=== PATIENT | male | born 1965 | race Caucasian/White ===

== ENCOUNTER → 2017-04-11 | Outpatient (CLI) | payer OTHER | LOC: FIMAGING 07:32 | PROVIDERS: ATTEND Physician Assistant | DX: R93.8 Abnormal findings on diagnostic imaging of other specified body structures (principal); M50.223 Other cervical disc displacement at C6-C7 level; M25.78 Osteophyte, vertebrae; M54.12 Radiculopathy, cervical region; R29.898 Other symptoms and signs involving the musculoskeletal system ==

== ENCOUNTER → 2018-01-23 | Outpatient (CLI) | payer OTHER ==
[~2018-01-23] MED LIST: GADOBUTROL 10 ML VIAL IVP ONE
== END ==
LOC: FIMAGING 06:46
PROVIDERS: ATTEND Otolaryngology
DX: J39.2 Other diseases of pharynx (principal); M25.78 Osteophyte, vertebrae; G95.20 Unspecified cord compression; M48.02 Spinal stenosis, cervical region; M99.71 Connective tissue and disc stenosis of intervertebral foramina of cervical region
CPT/HCPCS: A9585

== ENCOUNTER → 2018-10-06 | Outpatient (CLI) | payer OTHER | LOC: FIMAGING 18:07 | PROVIDERS: ATTEND Nurse Practitioner | DX: M50.31 Other cervical disc degeneration, high cervical region (principal); M50.222 Other cervical disc displacement at C5-C6 level; M47.12 Other spondylosis with myelopathy, cervical region; M48.02 Spinal stenosis, cervical region ==

== ENCOUNTER 2018-12-02 05:27 | Observation (INO) | payer OTHER ==
[2018-12-02] MEDS ORDERED: ceFAZolin 2 GM/DEXTROSE 100 ML IV ONE (05:59)
[2018-12-02] MEDS ORDERED: ACETAMINOPHEN 500 MG TAB PO ONE (05:59)
[2018-12-02] MEDS ORDERED: LR 1,000 ML IV ONE (06:00)
[2018-12-02] MEDS ORDERED: THROMBIN (BOVINE) 20,000 UNIT VIAL TP ONE (06:38)
[2018-12-02] MEDS ORDERED: SURGIFLO MATRIX KIT WITH THROMBIN 8 ML TP ONE (06:38)
[2018-12-02] MEDS ORDERED: CHLORHEXIDINE GLUC HIBICLENS 118 ML BTL TP ONE (06:39)
[2018-12-02] MEDS ORDERED: BACITRACIN 50,000 UNITS/10 ML SYR IRR ONE (06:39)
--- NOTE | 2018-12-02 06:39 | PDHPUP ---
History & Physical Update H&P update statement: This history and physical update is based on an assessment of the patient which was completed after admission or registration (within 24 hours), but prior to the surgery/procedure. H&P update: H&P reviewed & patient examined, no change in patient's condition since H&P completed (Consents signed and site marked. All questions answered.)
--- NOTE | 2018-12-02 07:00 | PDANEPAE ---
ANE Past Medical History - Cardiovascular History Hx Hypertension: Yes Hx Arrhythmias: No Hx Chest Pain: No Hx Coronary Artery / Peripheral Vascular Disease: No Hx CHF / Valvular Disease: No Hx Palpitations: No - Pulmonary History Hx COPD: No Hx Asthma/Reactive Airway Disease: Yes Hx Recent Upper Respiratory Infection: No Hx Oxygen in Use at Home: No Hx Sleep Apnea: No Sleep Apnea Screening Result - Last Documented: Positive Pulmonary History Comment: severe allergic asthma - Neurologic History Hx Cerebrovascular Accident: No Hx Seizures: Yes Hx Dementia: No Neurologic History Comment: petti mal seizures as teenager nothing since - Endocrine History Hx Diabetes: No - Renal History Hx Renal Disorders: No - Liver History Hx Hepatic Disorders: No - Neurological & Psychiatric Hx Hx Neurological and Psychiatric Disorders: Yes Neurological / Psychiatric History Comment: weakness to left arm. migraines. nortryptiline triggers vertigo - Cancer History Hx Cancer: No - Congenital Disorder History Hx Congenital Disorders: No - GI History Hx Gastrointestinal Disorders: Yes Gastrointestinal History Comment: acid reflux - Other Health History Other Health History: allergic rhinitis - Chronic Pain History Chronic Pain: No - Surgical History Prior Surgeries: toncilectomy at 2 yrs old ANE Review of Systems Review of Systems: - Exercise capacity METS (RN): 4 METS ANE Patient History - Allergies Allergies/Adverse Reactions: ibuprofen Allergy (Severe, Verified 12/20/14 14:40) Vomiting celecoxib [From Celebrex] Allergy (Verified 11/14/18 15:52) Vomiting gabapentin Allergy (Verified 11/14/18 15:52) Vomiting NSAIDS (Non-Steroidal Anti-Inflamma Allergy (Verified 11/14/18 15:52) Vomiting prednisone Allergy (Verified 12/02/18 06:13) pregabalin [From Lyrica] Allergy (Verified 11/14/18 15:52) Vomiting - Home Medications Home Medications: Atorvastatin Calcium [Lipitor 10 mg (*)] 10 mg PO DAILY 11/14/18 [Last Taken ] C/E/Zn/Cu/OM3/DHA/EPA/LUT/ZEAX [Preservision Areds 2 Softgel] 1 each PO BID 10/04 [Last Taken 11/28/18] Caffeine 200 mg PO DAILY@06 PRN 11/14/18 [Last Taken 11/25/18] Chlorpheniramine Maleate 32 mg PO HS 11/14/18 [Last Taken 11/30/18 22:00] Docusate Sodium [Dulcolax Stool Softener] 100 mg PO TIDMEAL 11/14/18 [Last Taken 11/25/18] Pseudoephedrine HCl 120 mg PO HS 11/14/18 [Last Taken 11/30/18 22:00] Ranitidine HCl [Zantac] 150 - 450 mg PO DAILY@1800 11/14/18 [Last Taken 19:00] Valacyclovir HCl [Valtrex] 1,000 mg PO DAILY PRN 11/14/18 [Last Taken Unknown] oxyCODONE/APAP 5/325 [Percocet 5/325 (*)] 1 - 2 tab PO Q4H PRN 11/14/18 [Last Taken 11/25/18] - NPO status NPO Since - Liquids (Date): 12/01/18 NPO Since - Liquids (Time): 23:00 NPO Since - Solids (Date): 12/01/18 NPO Since - Solids (Time): 19:00 - Smoking Hx Smoking Status: Never smoked - Family Anes Hx Family Hx Anesthesia Complications: mother very sick to stomach and vomiting ANE Labs/Vital Signs - Vital Signs Blood Pressure: 132/83 Heart Rate: 99 Respiratory Rate: 25 O2 Sat (%): 95 Height: 180.34 cm Weight: 98.883 kg ANE Physical Exam - Airway Neck exam: FROM Mallampati Score: Class 2 Mouth exam: normal dental/mouth exam - Pulmonary Pulmonary: no respiratory distress - Cardiovascular Cardiovascular: regular rate and rhythym - ASA Status ASA Status: II ANE Anesthesia Plan Anesthesia Plan: general endotracheal anesthesia
[2018-12-02] MEDS ORDERED: MIDAZOLAM 2 MG/2 ML VIAL ONE (07:11)
[2018-12-02] MEDS ORDERED: PROPOFOL/EMULSION 500 MG/50 ML BOTTLE IV ONE ×4 (07:14→08:59)
[2018-12-02] MEDS ORDERED: ONDANSETRON 4 MG/2 ML VIAL ONE ×2 (07:19)
[2018-12-02] MEDS ORDERED: LIDOCAINE 2% 100 MG/5 ML SYR ONE (07:19)
[2018-12-02] MEDS ORDERED: PHENYLEPHRINE 10 MG/ML SDV ONE (07:20)
[2018-12-02] MEDS ORDERED: MIDAZOLAM 2 MG/2 ML VIAL IVP ONE (08:33)
[2018-12-02] MEDS ORDERED: ALBUTEROL 3 ML DEYVIAL IH PRN (08:47)
[2018-12-02] MEDS ORDERED: fentaNYL 100 MCG/2 ML INJ IVP PRN (08:47)
[2018-12-02] MEDS ORDERED: NALOXONE HCL 0.4 MG/ML INJ IVP PRN ×2 (08:47)
[2018-12-02] MEDS ORDERED: METOCLOPRAMIDE 10 MG/2 ML VIAL IVP PRN (08:47)
[2018-12-02] MEDS ORDERED: MEPERIDINE 25 MG/0.5 ML AMP IVP PRN (08:47)
[2018-12-02] MEDS ORDERED: ONDANSETRON 4 MG/2 ML VIAL IVP PRN ×2 (08:47→10:52)
[2018-12-02] MEDS ORDERED: DEXAMETHASONE 4 MG/ML VIAL ONE ×2 (09:11)
[2018-12-02] MEDS ORDERED: GLYCOPYRROLATE 0.2 MG/1 ML VIAL ONE ×2 (09:22)
[2018-12-02] MEDS ORDERED: NEOSTIGMINE METHYLSULFATE 5 MG/5 ML SYR ONE (09:22)
[2018-12-02] MEDS ORDERED: *INTRAOP 1000MG*TRANEX ACID/NS 100 ML IV ONE (09:30)
[2018-12-02] MEDS ORDERED: ONDANSETRON DISINTEGRATING 4 MG TAB PO PRN (10:52)
[2018-12-02] MEDS ORDERED: BISACODYL 10 MG SUPP PR PRN (10:52)
[2018-12-02] MEDS ORDERED: LACTULOSE 20 GM/30 ML UDCUP PO PRN (10:52)
[2018-12-02] MEDS ORDERED: MAGNESIUM HYDROXIDE 30 ML UDCUP PO PRN (10:52)
[2018-12-02] MEDS ORDERED: diphenhydrAMINE 25 MG CAP PO PRN (10:52)
[2018-12-02] MEDS ORDERED: POLYETHYLENE GLYCOL 3350 17 GM PKT PO PRN (10:52)
[2018-12-02] MEDS ORDERED: NS 1,000 ML IV SCH (11:00)
--- NOTE | 2018-12-02 11:04 | POSTOPPROG ---
Post Op Note Date of Operation: 12/02/18 Surgeon: Andrea Harrington Tanning Wheel Filler: Aleksandar Landrum NP Anesthesiologist: Guerrero Anesthesia: GET(General Endotracheal) Pre-op Diagnosis: Cervical stenosis Post-op Diagnosis: Cervical fusion, cervical stenosis Procedure: ACDF C5-6, C6-7 Inf/Abcess present in the surg proc area at time of surgery?: No Depth: Deep Incisional (Fascial) EBL: 50-100 Total fluids administered: see anesthesia Complications: none Bowel Protocol: N/A Clean Closure Performed: N/A Drains: Chaitanya Moran Date of Surgery: 12/02/18 Post Op Day: 0 Assessment/Plan: Assessment: 53 yr old M s/p ACDF C5-6, C6-7 Plan: -Admit med surg -Post op xrays later today -Collar on at all time except for shower and eating -JOHNATHAN to bulb suction -PT/OT/ST -Please call with questions/concerns Subjective: waking up in pacu Objective: waking up in pacu No facial droop MAEx4 Dressing CDI JOHNATHAN patent Collar in place Appropriate Neuro Check Frequency Ordered: Yes
--- NOTE | 2018-12-02 11:12 | GOP ---
[f rep st] OPERATIVE REPORT DATE OF OPERATION: 12/02/2018 SURGEON: Andrea Harrington MD ETL TESTER: Hui Moy NP. ANESTHESIA: General. PREOPERATIVE DIAGNOSIS: 1. C5 through C7 cervical spondylosis with left-sided herniated nucleus pulposus and lateral recess and foraminal stenosis. 2. Left upper extremity radiculopathy and weakness. 3. Treatment refractory to nonoperative intervention. POSTOPERATIVE DIAGNOSIS: 1. C5 through C7 cervical spondylosis with left-sided herniated nucleus pulposus and lateral recess and foraminal stenosis. 2. Left upper extremity radiculopathy and weakness. 3. Treatment refractory to nonoperative intervention. PROCEDURE PERFORMED: 1. Anterior arthrodesis with approach to C5, C6, and C7. 2. C5-C6 diskectomy with bilateral foraminotomies, osteophytectomies, and interbody fusion using a 7 x 14 mm titanium coated PEEK cage filled with morselized autograft and allograft. 3. C6-C7 diskectomy with bilateral foraminotomies osteophytectomies, and interbody fusion using a 7 x 14 mm titanium coated PEEK cage filled with morselized autograft and allograft. 4. Anterior cervical fusion C5, C6, and C7 with a 35 mm Medtronic Zevo plate. 5. Use of intraoperative fluoroscopy, less than 1 hour physician time. 6. Use of neuromonitoring. 7. Use of the operating microscope. FINDINGS: Left-sided foraminal stenosis was likely secondary to an osteophyte complex and not a disk herniation as presumed on the MRI. ESTIMATED BLOOD LOSS: 50 mL. COMPLICATIONS: None. INDICATIONS: The patient is a very pleasant, 53-year-old who presented to my office with left upper extremity radiculopathy and arm weakness. Imaging demonstrated a left-sided C5-C6 and C6-C7 disk herniations with lateral recess and foraminal stenosis. After discussion of risks, benefits, and alternatives, and given the fact that he had weakness, we decided to proceed forth with surgery as described above. DESCRIPTION OF PROCEDURE: The patient was brought to the operating theater and underwent general anesthesia without complications. He had Venodynes, GRECIA hose , and the appropriate lines placed by Anesthesia. His head was maintained supine on the operating table in slight extension. Using lateral fluoroscopy and a spinal needle, we picked our entry point to the C5 through C7 levels. The visualization was somewhat challenging due to the patient's body habitus and shoulders. We then marked this is a transverse incision on the right side of the neck. This area was then prepped and draped in the usual sterile surgical fashion. A time-out was completed per protocol. The patient received antibiotics within 1 hour of incision. The incision was taken down with the scalpel blade. Using monopolar, the incision was taken down through subcutaneous tissues to the level of the platysma. The platysma was over-mined in the cranial and caudal direction. A Weitlaner was placed to maintain our exposure. We traveled in a plane medial to the carotid sheath and lateral to the esophagus and trachea until we reached the prevertebral fascia. We placed a bayonetted needle into the disc space of C5-C6 and confirmed our level using lateral fluoroscopy. We elevated the longus coli from the anterior vertebral bodies of C5, C6, and C7. Deep retractors were placed to maintain exposure. We confirmed our level using lateral fluoroscopy. The microscope was brought into field to assist with microscopic dissection and maintain illumination and magnification. Using a combination of bur tip on the drill bit, Kerrison punches, and curettes, we completed a C5-C6 diskectomy with bilateral foraminotomies. We prepared the cartilaginous endplates and measured the interbody space. We then placed a 7 x 14 x 11 mm titanium coated PEEK cage filled with morselized autograft and allograft into the C5-C6 disk space. We removed the [place] pin from C5, placed it into C7 and placed C6-C7 into mild distraction. We completed a C6-C7 diskectomy with bilateral foraminotomies and osteophytectomies. There was not a large fresh disk herniation as noted at this level, but he did have a large disk osteophyte complex, which were removed carefully using Kerrison punches. We prepared the cartilaginous endplates and measured interbody space. We placed a 7 x 14 x 11 mm titanium coated PEEK cage filled with morselized autograft and allograft into the C6-7 disk space. We removed the [place] pins, drilled down the anterior osteophytes and secured a 35 mm Medtronic Zevo plate onto the vertebral bodies of C5, C6, and C7. AP and lateral x-rays demonstrated good placement of the hardware. The wound was irrigated copiously with bacitracin irrigation. We left a drain in subfascial space and closed the wound in multiple layers using Vicryl sutures for the deep layers and Dermabond for the skin. Patient's wounds were dressed sterilely. He was awakened, extubated, and taken to the recovery room in stable condition. There were no complications and no noted changes on neuromonitoring throughout the procedure. /[id number]/MODL MTDD
[2018-12-02] MEDS ORDERED: HYDROCODONE/APAP 5/325 TAB ONE (12:51)
[2018-12-02] MEDS: HYDROCODONE/APAP 5/325 TAB PO PRN ×3 (12:51→21:53)
[2018-12-02] MEDS: METHOCARBAMOL 750 MG TAB PO PRN ×2 (13:51→19:56)
[2018-12-02] MEDS ORDERED: ACETAMINOPHEN 500 MG TAB PO SCH (14:00)
--- NOTE | 2018-12-02 14:36 | POSTANESTH ---
Post Anesthetic Evaluation Cardiovascular Status: Similar to Pre-Op Cond Respiratory Status: Similar to Pre-op Cond. Level of Consciousness/Mental Status: Alert and Oriented Pain Control: Adequate, Prn Tx Ordered Nausea/Vomiting Control: Adequate, Prn Tx Ordered Complications Possibly Related to Anesthesia: None Noted
[2018-12-02] MEDS: ACETAMINOPHEN 500 MG TAB PO SCH ×2 (16:25→21:54)
[2018-12-02] MEDS: ceFAZolin 2 GM/DEXTROSE 100 ML IV SCH (18:35)
[2018-12-02] MEDS ORDERED: METOPROLOL TARTRATE 5 MG/5 ML INJ IVP ONE (19:00)
[2018-12-02] MEDS: LISINOPRIL 10 MG TAB PO SCH (19:42)
[2018-12-02] MEDS ORDERED: PSEUDOEPHEDRINE HCL 30 MG TAB PO PRN (21:00)
[2018-12-02] MEDS: SENNOSIDES/DOCUSATE SODIUM TAB PO SCH (21:54)
[2018-12-02] MEDS: FAMOTIDINE 20 MG TAB PO SCH (21:54)
[2018-12-03] MEDS: ceFAZolin 2 GM/DEXTROSE 100 ML IV SCH (01:26)
[2018-12-03] MEDS: METHOCARBAMOL 750 MG TAB PO PRN ×2 (02:16→11:25)
[2018-12-03] MEDS: ACETAMINOPHEN 500 MG TAB PO SCH (05:03)
[2018-12-03 05:11] LABS: PLATELET COUNT 255 10^3/uL (150-400)
[2018-12-03] MEDS ORDERED: oxyCODONE IR 5 MG TAB PO PRN (06:57)
--- NOTE | 2018-12-03 06:58 | NEUSURGPN ---
Date of Surgery: 12/02/18 Post Op Day: 1 Assessment/Plan: Assessment: 53 yr old M that is s/p ACDF C5-6 and C6-7 POD #1 Plan: -s/p ACDF C5-C7: pt states some expected posterior neck pain. Swallowing fine -pt states that his LUE symptoms are gone -continue with med/surg -post op xrays pending -PT/OT/ST pending -collar on at all time except for shower and eating -JOHNATHAN to bulb suction -warning signs given -call with any questions/concerns -pt understands and agrees Subjective: Awake and alert. NAD. Eating/drinking and voiding. No f/c/n/v/d. Objective: AAO cx 3, PERRLA/EOMI no facial droop 5/5 BUE/BLE = CDI neck soft and supple JOHNATHAN patent Collar in place-no complaints or skin issues Neuro Check Frequency: per routine Urinary Catheter in Place: No - Physician Discussed Patient with DrIndra: Len Neurosurgery Physical Exam - Vitals, I&O, Labs I and O 12/02/18 12/03/18 12/04/18 05:59 05:59 05:59 Intake Total 2350 Output Total 2888 Balance -538 Weight 98.883 kg Intake: Oral (ml) 1150 IV Intake (ml) 1100 IV Infused (ml) 100 ceFAZolin 2 GM/DEXTROSE 100 100 ml @ 200 mls/hr IV Q8H [facility] Rx#:[id number] Output: Urine (ml) 2800 Urinal 2800 Estimated Blood Loss (ml) 50 Emesis (ml) 0 JOHNATHAN Drain Output (ml) 38 #1 Anterior Neck Chaitanya 38 Moran Other: Number of Voids Toilet 1 Vital Signs Temp Pulse Resp BP Pulse Ox 36.8 C 97 17 148/91 H 93 12/03/18 04:00 12/03/18 04:00 12/03/18 04:00 12/03/18 04:00 12/03/18 04:00 Laboratory Results 12/03/18 05:00 12/03/18 05:00 ICD10 Worksheet Patient Problems: Problems Problem Status Onset Arthrodesis status Acute Cervical radicular pain Acute Cervical spinal stenosis Acute - ICD10 Problem Qualifiers (1) Cervical spinal stenosis (2) Cervical radicular pain (3) Arthrodesis status
[2018-12-03 07:48] VITALS: BP 120/94
[2018-12-03] MEDS: SENNOSIDES/DOCUSATE SODIUM TAB PO SCH (07:54)
[2018-12-03] MEDS: FAMOTIDINE 20 MG TAB PO SCH (07:54)
[2018-12-03] MEDS: LISINOPRIL 10 MG TAB PO SCH (07:55)
[2018-12-03] MEDS ORDERED: LISINOPRIL 10 MG TAB PO SCH (09:00)
[2018-12-03] MEDS ORDERED: ATORVASTATIN CALCIUM 10 MG TAB PO SCH (09:00)
--- NOTE | 2018-12-03 11:30 | ASMTLACE ---
LACE Length of stay for Answers: 2 days current admission Acuity / Level of Answers: No Care: Did the patient have an inpatient admission? Comorbidities - select Answers: Other Notes: HTN all that apply # of Emergency department Answers: 0 visits in the last 6 months Score: 3 Date Signed: 12/03/2018 11:29 AM Electronically Signed By:LUZMA Mathew
--- NOTE | 2018-12-03 11:40 | ASMTCMCOM ---
CM Note CM Note Notes: Pt had planned surgery, resides with spouse. OT/PT/[employer] rec home. Pt medically stable for d/c, no CM d/c needs identified. Date Signed: 12/03/2018 11:39 AM Electronically Signed By:LUZMA Mathew
[2018-12-05] MEDS ORDERED: ENOXAPARIN 40 MG/0.4 ML SYR SC SCH (09:00)
== END 2018-12-03 12:01 | disposition home or self-care (01) ==
LOC: F3N 05:27
PROVIDERS: ADMIT Neurological Surgery; ATTEND Neurological Surgery
PROC: 0RB30ZZ Excision of Cervical Vertebral Disc, Open Approach (ICD-10-PCS; principal; 2018-12-02 07:15)
PROC: 0RG20A0 Fusion of 2 or more Cervical Vertebral Joints with Interbody Fusion Device, Anterior Approach, Anterior Column, Open Approach (ICD-10-PCS; principal; 2018-12-02 07:15)
PROC: 4A10X4G Monitoring of Central Nervous Electrical Activity, Intraoperative, External Approach (ICD-10-PCS; principal; 2018-12-02 07:15)
DX: M47.22 Other spondylosis with radiculopathy, cervical region (principal)
CPT/HCPCS: 22551; 22552; 22853; 72040; 76000; 92610; 97161; 97165; G0378; C1713; J0690; J1100; J2001; J2250; J2270; J2370; J2405; J2704; J2710

== ENCOUNTER → 2019-01-15 | Outpatient (CLI) | payer OTHER | LOC: FIMAGING 06:11 | PROVIDERS: ATTEND Physician Assistant | DX: Z09 Encounter for follow-up examination after completed treatment for conditions other than malignant neoplasm (principal); Z98.1 Arthrodesis status ==

== ENCOUNTER → 2019-03-01 | Outpatient (CLI) | payer OTHER | LOC: FIMAGING 14:06 ==